=== PATIENT | male | born 1950 | race Hispanic/Latino ===

== ENCOUNTER 2017-02-06 06:42 | Day surgery (SDC) | payer MEDICARE ==
[2017-01-30 11:05] VITALS: BMI 28.3
--- NOTE | 2017-02-06 08:04 | RAD ---
HISTORY: PRE-OP COMPARISON: No prior. TECHNIQUE: Chest PA and lateral FINDINGS: LUNGS: No active pulmonary disease. PLEURA: No significant pleural effusion identified. No pneumothorax apparent. CARDIOVASCULAR: Normal. OSSEOUS STRUCTURES: No significant abnormalities. VISUALIZED UPPER ABDOMEN: Normal. OTHER FINDINGS: None. IMPRESSION: No active disease.
[2017-02-06] MEDS ORDERED: Midazolam 2 MG/2 ML VIAL ONE (08:27)
[2017-02-06] MEDS ORDERED: Propofol 10 mg/ml Inj (20 ML) ONE (08:27)
[2017-02-06] MEDS ORDERED: Rocuronium 10 mg/ml (5 ml) ONE (08:28)
[2017-02-06] MEDS ORDERED: Succinylcholine 200 mg/10 ml Inj IV ONE (08:28)
[2017-02-06] MEDS ORDERED: Desflurane Inhalation Anesthetic Liq (240 ml) ONE (09:15)
[2017-02-06] MEDS ORDERED: Bupivacaine 0.5% Inj(30mL) ONE (09:22)
[2017-02-06] MEDS ORDERED: Bupivacaine-Epi 0.25%-1:200,000 PF Inj ONE (09:24)
[2017-02-06] MEDS ORDERED: Lactated Ringer's 1,000 ML IV SCH (11:31)
[2017-02-06] MEDS ORDERED: HYDROmorphone 0.5 mg/0.5 ml ISec IVP PRN ×2 (11:31→11:34)
--- NOTE | 2017-02-06 11:33 | PCM.SURG1 ---
Surgeon's Initial Post Op Note - Surgeon's Notes Surgeon: Dr. Wiley Pig Lead Melter Helper: Dr. Pozo PGY3; Dr. Roberson PGY2; Dr. Shen Type of Anesthesia: General Endo Anesthesia Administered By: Robbie Pre-Operative Diagnosis: Right Parotid tumor Operative Findings: same Post-Operative Diagnosis: same Operation Performed: Right Superficial Parotidectomy Specimen/Specimens Removed: Right Superficial Parotid gland Estimated Blood Loss: EBL {In ML}: 20 Blood Products Given: N/A Drains Used: Nilton Penn Post-Op Condition: Good Date of Surgery/Procedure: 02/06/17 Time of Surgery/Procedure: 11:33
[2017-02-06] MEDS ORDERED: Oxycodone/Acetaminophen 5/325 mg Tab PO PRN (11:34)
[2017-02-06] MEDS ORDERED: Sodium Chloride 0.9% 1,000 ML IV SCH (11:45)
[2017-02-06 17:05] VITALS: BP 160/90; PULSE 76; RESP 20; TEMP 98.6; O2SAT 97
--- NOTE | 2017-02-07 08:41 | CP.PCM.PN ---
<Efren Roberson - Last Filed: 02/10/17 16:54> Subjective - Date & Time of Evaluation Date of Evaluation: 02/06/17 Time of Evaluation: 07:30 - Subjective Subjective: 66M seen and examined prior to operation for parotidectomy. Upon physical exam, it was noted that patient had slight left lip droop. Patient was asked about the droop and he states it is always like that went he takes out his dentures. Objective - Vital Signs/Intake and Output Vital Signs (last 24 hours): Temp Pulse Resp BP Pulse Ox 98.6 F 76 20 160/90 H 97 02/06/17 16:00 02/06/17 16:00 02/06/17 16:00 02/06/17 16:00 02/06/17 16:00 <Marco Wiley - Last Filed: 02/11/17 23:07> Objective - Vital Signs/Intake and Output Vital Signs (last 24 hours): Temp Pulse Resp BP Pulse Ox 98.6 F 76 20 160/90 H 97 02/06/17 16:00 02/06/17 16:00 02/06/17 16:00 02/06/17 16:00 02/06/17 16:00 Assessment and Plan - Assessment and Plan (Free Text) Assessment: Patient was seen and examined by me. I agree with assessment and plan as per resident's note, except as described below. The lower lip droop and deformation appear to be most prominent one patient was talking. It showed as lowering of the right side of the lower lip and curved protrusion of the left side of the lower lip. Patient appears to have it for several years and is atributing it to his dentures. Patient previously at least two biopsies of this mass in the right parotid gland.
[2017-02-07] MEDS ORDERED: AMLODIPINE BESYLATE PO SCH ×2 (10:00)
[2017-02-07] MEDS ORDERED: BENAZEPRIL PO SCH ×2 (10:00)
[2017-02-07] MEDS ORDERED: [UNRECOGNIZED DRUG - OTHER] PO SCH ×2 (10:00)
--- NOTE | 2017-02-07 13:15 | OP ---
PROCEDURE DATE: 02/06/2017 PREOPERATIVE DIAGNOSIS: Right parotid gland tumor. POSTOPERATIVE DIAGNOSIS: Right parotid gland tumor. PROCEDURE PERFORMED: Right superficial parotidectomy. SURGEON: Marco Wiley MD ASSISTANTS: 1. Nash Jaramillo MD, director of first impressions. 2. Dr. Pozo, Resident 3. Dr. Roberson, Resident TYPE OF ANESTHESIA: General endotracheal anesthesia. ANESTHESIA ADMINISTERED BY: Dr. Avalos. ESTIMATED BLOOD LOSS: About 20 mL. DRAINS: A Nilton-Penn drain was used at the end of the procedure. SPECIMEN REMOVED: Right superficial parotid glands. INDICATIONS FOR PROCEDURE: The patient is a 66-year-old male with history of a right parotid mass for the past several years, for which the patient claims about 10 years. Apparently, the patient had multiple biopsies previously and was told that this is a benign tumor. It was recommended to remove it, however, did not do so. On the initial visit in the office, the patient was noted to have a right oral commissure to be slightly depressed, as well as having some problem with lower lip, which could possibly be related to the mandibular branch of the facial nerve; however, the patient does claim that this was due to previous problem with his dentures, after which the patient subsequently developed that type of findings. The patient was brought today for an excision of the parotid tumor via the right superficial parotidectomy. DESCRIPTION OF PROCEDURE: The patient was brought to the operating room and placed on operating table in supine position. The patient was connected to EKG, blood pressure, and pulse oximetry monitors. The patient was then prepped and draped in the usual sterile fashion after a bolster under the shoulder in order to extend the neck was placed underneath his shoulders. First a standard time-out procedure took place, when everybody in the room agreed as to the patient's identify, diagnoses, and procedure to be performed. Dr. Jaramillo, who is the director of first impressions was present during the entire procedure and was essential for prompt and safe performance of this procedure. First, the area of incision was marked and carefully injected with lidocaine. The incision was carried from just front of the earlobe starting at the pretragal area down to the bottom of the earlobe and extending posteriorly onto the neck along the anterior border of the sternocleidomastoid muscle and following around the angle of jaw. The incision was carried through the subcutaneous fat into the parotid gland fascia. The flap of the skin was raised all the way up to the anterior border of the parotid and this was carefully evaluated after the mass was palpated. The mass appeared to be in lower portion of the parotid gland. Now, the incision was carried . The posterior flap of the parathyroid gland was carefully raised in order to expose the sternocleidomastoid fascia. The greater auricular nerve as well as external jugular vein were identified and careful dissection was continued to in order avoid these 2 structures. A Harmonic scalpel was used for the dissection. The tail of the parotid gland was now carefully elevated to the point when the posterior belly of the digastric muscle was visible. The posterior portion of the gland was carefully from the cartilage of the tragus in front of the external auditory canal and this was carried down to the deep bony cartilaginous junction. Careful blunt dissection was done in order to identify the origin of the facial nerve. Once the nerve was identified the dissection then proceeded carefully by exposing the nerve itself and its branches and the parathyroid gland superficially to the nerve branches. Once the entire portion of the superficial parotid gland was together with the mass, which was the specimen was sent for pathology. Now the wound was copiously irrigated. All the bleeding points were carefully evaluated and either cauterized or closed with Harmonic scalpel and at this point, I proceeded with procedure of placing a small Nilton-Penn drain into the wound and brought it out posteriorly to the incision. The incision was now closed using 3-0 Vicryl and 4-0 Monocryl in a subcuticular fashion. A sterile Dermabond dressing was applied to the wound. The pressure dressing was placed on top of it. The patient then was awakened and transferred to the recovery room for further observation. In the recovery room, the patient was subsequently evaluated and was noted to have normal function without any change from the preoperative status. The patient denied any numbness on the ear or on the face. Marco Wiley MD
== END 2017-02-06 18:59 | disposition home or self-care (01) ==
LOC: SDS 06:42 → 3RSO 13:05 → SDS 18:59
PROVIDERS: ATTEND General Practice
DX: D11.0 Benign neoplasm of parotid gland (principal); E80.6 Other disorders of bilirubin metabolism; Z79.899 Other long term (current) drug therapy
CPT/HCPCS: 42415; 71020; 88307; J0131; J0330; J0690; J1170; J2001; J2250; J2405; J2704; J2765; J3010; J7040; J7120 ×2